=== PATIENT | male | born 1995 | race Caucasian/White ===

== ENCOUNTER 2017-06-27 12:10 | Emergency (ER) | payer SELFPAY ==
[2017-06-27 12:26] VITALS: BP 122/82
--- NOTE | 2017-06-27 12:45 | XRay Report ---
RIGHT FOOT RADIOGRAPHS INDICATION: Right foot swelling. COMPARISON: None similar at this institution. FINDINGS: AP, lateral and oblique right foot radiographs demonstrate approximately 3.5 x 1.7 cm focal ovoid soft tissue swelling dorsal to the metatarsal heads on the lateral view. Intact bones, joints and remainder soft tissues. Small dorsal calcaneal spur. CONCLUSION: Focal right forefoot dorsal soft tissue swelling, as described, possibly a hematoma if posttraumatic or a lipoma, amongst others. Please also correlate clinically. Thank you for the opportunity to participate in this patient's care.
--- NOTE | 2017-06-27 15:02 | Emergency Department Report ---
ED Lower Extremity HPI - General Chief Complaint: Extremity Injury, Lower Stated Complaint: RIGHT FOOT PAIN,SWOLLEN Time Seen by Provider: 06/27/17 13:47 Source: patient Mode of arrival: Ambulatory Limitations: No Limitations - History of Present Illness Initial Comments: This is a 22-year-old male that presents with right foot pain due to lipoma. Patient stated this is a chronic condition that he also has in his right hand. Patient denies any trauma to the region. Patient stated this comes and goes but started to hurt a lot at work that is why he came into the ED. Denies any chest pain, shortness of breath, numbness, tingling, fever, chills, nausea, vomiting, headache or stiff neck. Describes pain as aching with level 3 out of 10. Patient denies any allergies or PMH. MD Complaint: foot injury -: year(s) Injury: Foot: Right Place: work Severity: mild Severity scale (0 -10): 8 Improves With: nothing Worsens With: nothing Associated Symptoms: swelling, ambulatory. denies: snap/pop sensation, numbness , tingling, unable to bear weight, able to partially bear weight - Related Data Previous Rx's Medication Instructions Recorded Last Taken Type Ibuprofen [Motrin] 600 mg PO Q8H PRN #30 tablet 06/27/17 Unknown Rx Allergies Allergy/AdvReac Type Severity Reaction Status Date / Time No Known Allergies Allergy Unverified 06/27/17 12:22 ED Review of Systems ROS: Stated complaint: RIGHT FOOT PAIN,SWOLLEN Other details as noted in HPI Constitutional: denies: chills, fever Eyes: denies: eye pain, eye discharge, vision change ENT: denies: ear pain, throat pain Respiratory: denies: cough, shortness of breath, wheezing Cardiovascular: denies: chest pain, palpitations Endocrine: no symptoms reported Gastrointestinal: denies: abdominal pain, nausea, diarrhea Genitourinary: denies: urgency, dysuria Musculoskeletal: denies: back pain, joint swelling, arthralgia Skin: denies: rash, lesions Neurological: denies: headache, weakness, paresthesias Psychiatric: denies: anxiety, depression Hematological/Lymphatic: denies: easy bleeding, easy bruising ED Past Medical Hx - Past Medical History Previous Medical History?: No Additional medical history: Left knee pain - Surgical History Past Surgical History?: Yes Additional Surgical History: Left knee surgery for torn ACL - Social History Smoking Status: Current Every Day Smoker Substance Use Type: Alcohol, Marijuana, Non Opiate Pain - Medications Home Medications: Home Medications Medication Instructions Recorded Confirmed Last Taken Type Ibuprofen [Motrin] 600 mg PO Q8H PRN #30 tablet 06/27/17 Unknown Rx ED Physical Exam - General Limitations: No Limitations General appearance: alert, in no apparent distress - Head Head exam: Present: atraumatic, normocephalic - Eye Eye exam: Present: normal appearance - ENT ENT exam: Present: mucous membranes moist - Neck Neck exam: Present: normal inspection - Respiratory Respiratory exam: Present: normal lung sounds bilaterally. Absent: respiratory distress - Cardiovascular Cardiovascular Exam: Present: regular rate, normal rhythm. Absent: systolic murmur, diastolic murmur, rubs, gallop - GI/Abdominal GI/Abdominal exam: Present: soft, normal bowel sounds - Rectal Rectal exam: Present: deferred - Extremities Exam Extremities exam: Present: normal inspection - Expanded Lower Extremity Exam Right Foot/Toe exam: Present: normal inspection, full ROM, swelling (mobile nodular with swelling). Absent: tenderness, abrasion, laceration, ecchymosis, deformity , crepidus, dislocation, erythema, amputation, puncture wound, foreign body, calcaneal tenderness, tenderness at base of 5th metatarsal, nail avulsion, subungual hematoma Neuro vascular tendon exam: Present: no vascular compromise Gait: Positive: observed and normal - Back Exam Back exam: Present: normal inspection, full ROM - Neurological Exam Neurological exam: Present: alert, oriented X3, CN II-XII intact, normal gait, reflexes normal - Psychiatric Psychiatric exam: Present: normal affect, normal mood - Skin Skin exam: Present: warm, dry, intact, normal color. Absent: rash - Other Other exam information: No induration or fluctuance noted. No surrounding cellulitis or erythema. ED Course Vital Signs 06/27/17 12:22 Temperature 98.5 F Pulse Rate 65 Respiratory 20 Rate Blood Pressure 122/82 O2 Sat by Pulse 98 Oximetry - Reevaluation(s) Reevaluation #1: 06/27/17 15:07 Patient is speaking in full sentences with no signs of distress noted. ED Lower Extremity MDM - Radiology Data Radiology results: report reviewed interpreted by me: Dictated by radiologist. Normal exam with hematoma vs. lipoma - Medical Decision Making This is a 22-year-old male that presents with mobile nodular of right anterior foot. Patient was examined by me and patient is stable. There is no signs of erythema or cellulitis. No induration or flutance noted. Patient discharged with Motrin. This was instructed to Follow-up with a primary care doctor in 3- 5 days or if symptoms worsen and continue return to emergency room as soon as possible. At time time of discharge, the patient does not seem toxic or ill in appearance. No acute signs of distress noted. Patient agrees to discharge treatment plan of care. No further questions noted by the patient. Critical care attestation.: If time is entered above; I have spent that time in minutes in the direct care of this critically ill patient, excluding procedure time. ED Disposition Clinical Impression: Lipoma Qualifiers: Lipoma location: lower extremity Laterality: right Qualified Code(s): D17.23 - Benign lipomatous neoplasm of skin and subcutaneous tissue of right leg Disposition: DC-01 TO HOME OR SELFCARE Is pt being admited?: No Does the pt Need Aspirin: No Condition: Stable Instructions: Lipoma (ED), Ibuprofen (By mouth) Additional Instructions: Follow-up with a primary care doctor in 3-5 days or if symptoms worsen and continue return to emergency room as soon as possible. Prescriptions: Ibuprofen [Motrin] 600 mg PO Q8H PRN #30 tablet PRN Reason: Pain Referrals: PRIMARY CARE, [Primary Care Provider] - 3-5 Days LURDES ANDRADE MD [Staff Physician] - 3-[facility] Days [facility] - [facility]5 Days [facility] [Outside] - 3-5 Days Forms: Work/School Release Form(ED)
== END 2017-06-27 15:31 | disposition home or self-care (01) ==
LOC: ED 12:10
DX: D17.23 Benign lipomatous neoplasm of skin and subcutaneous tissue of right leg (principal); F17.200 Nicotine dependence, unspecified, uncomplicated; F12.10 Cannabis abuse, uncomplicated
CPT/HCPCS: 99283